=== PATIENT | male | born 1955 | race Two or more races ===

== ENCOUNTER 2017-05-31 17:28 | Emergency (ER) | payer BC ==
[~2017-05-31] VITALS: Ht 175.3 cm; Wt 75.0 kg
[2017-05-31] MEDS ORDERED: ASPIRIN 81 MG CHEW TABLET PO ONE (17:45)
[2017-05-31] MEDS ORDERED: ASPI81CH PO (17:46)
[2017-05-31] MEDS ORDERED: CRES10TA32 PO (17:46)
[2017-05-31] MEDS ORDERED: [UNRECOGNIZED DRUG - OTHER] (17:46)
[2017-05-31 18:00] LABS: BASO # 0.1 K/mm3 (0.0-0.2); BASO % 1.1 % (0.0-1.0); EOS # 0.8 K/mm3 (0.0-0.50); EOS % 12.9 % (0.0-3.0); LARGE UNSTAINED CELL # 0.1 K/mm3 (0.0-0.4); LARGE UNSTAINED CELL % 1.7 % (0.0-4.0); LYMPH # 2.5 K/mm3 (1.5-4.5); MEAN CORPUSCULAR HEMOGLOBIN 31.5 pg (27.0-33.0); MEAN CORPUSCULAR HGB CONC 34.1 g/dl (32.0-36.5); MEAN CORPUSCULAR VOLUME 92.3 fl (80.0-96.0); MONO # 0.4 K/mm3 (0.0-0.8); MONO % 5.7 % (0.0-5.0); NEUTROPHILS # 2.8 K/mm3 (1.8-7.7); NEUTROPHILS % 42.5 % (36.0-66.0); PLATELET COUNT, AUTOMATED 192 k/mm3 (150-450); RED CELL DISTRIBUTION WIDTH 12.7 % (11.5-14.5); WHITE BLOOD COUNT 6.6 K/mm3 (4.0-10.0)
[2017-05-31] MEDS ORDERED: NITROGLYCERIN 0.4 MG SUBL TABLET SL PRN (18:00)
[2017-05-31 18:01] VITALS: BP 124/78
[2017-05-31 18:26] LABS: ALBUMIN 3.8 GM/DL (3.2-5.2); ALBUMIN/GLOBULIN RATIO 0.97 (1.00-1.93); ALKALINE PHOSPHATASE 101 U/L (45-117); ALT/SGPT 28 U/L (12-78); ANION GAP 5 MEQ/L (8-16); AST/SGOT 26 U/L (15-37); BILIRUBIN,DIRECT 0.1 MG/DL (0.0-0.2); BILIRUBIN,TOTAL 0.4 MG/DL (0.2-1.0); BLOOD UREA NITROGEN 14 MG/DL (7-18); CALCIUM LEVEL 8.8 MG/DL (8.8-10.2); CARBON DIOXIDE LEVEL 29 MEQ/L (21-32); CHLORIDE LEVEL 104 MEQ/L (98-107); CREATININE FOR GFR 0.84 MG/DL (0.70-1.30); GLOMERULAR FILTRATION RATE > 60.0 (>49); GLUCOSE, FASTING 100 MG/DL (80-110); POTASSIUM SERUM 4.5 MEQ/L (3.5-5.1); SODIUM LEVEL 138 MEQ/L (136-145); TOTAL PROTEIN 7.7 GM/DL (6.4-8.2)
--- NOTE | 2017-05-31 18:44 | REP ---
Portable chest: There are no comparisons. The lung walsh are clear. The cardiac size is normal. The bobbi, mediastinum, and bony thorax are unremarkable. Impression: Negative portable chest. Signed by Sujti Chapman MD 05/31/2017 06:35 P
--- NOTE | 2017-05-31 19:08 | ECGEPIP ---
Stationary ECG Study [facility] - ED Test Date: 2017-05-31 Pat Name: INES GAMBINO Department: Room: - Gender: M Reviewer Sales: : 1955 Requested By: Shanna Farrell Order Number: [id number] Reading MD: Shanna Farrell Measurements Intervals [place] Rate: 68 P: 51 CO: 151 QRS: -1 QRSD: 100 T: 54 QT: 370 QTc: 395 Interpretive Statements SINUS RHYTHM DELAYED R PROGRESSION NO PRIOR FOR COMPARISON Electronically Signed On 05-31-2017 19:08:02 EDT by Shanna Farrell
[2017-06-01 00:41] VITALS: BP 122/75
--- NOTE | 2017-06-01 13:42 | ECGEPIP ---
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
[2017-06-02] MEDS ORDERED: TOPR25TA PO (22:18)
[2017-06-02] MEDS ORDERED: ASPI1TAB15 PO (23:49)
[2017-06-02] MEDS ORDERED: PATIENT COMMENT (23:52)
== END 2017-06-01 00:43 | disposition home or self-care (01) ==
LOC: M ED 17:28
DX: R07.9 Chest pain, unspecified (principal); I25.2 Old myocardial infarction; E78.5 Hyperlipidemia, unspecified; Z95.5 Presence of coronary angioplasty implant and graft; Z79.82 Long term (current) use of aspirin; Z79.899 Other long term (current) drug therapy; Z91.89 Other specified personal risk factors, not elsewhere classified

== ENCOUNTER 2017-06-02 19:35 | Inpatient (IN) | payer BC ==
[~2017-06-02] VITALS: Ht 170.2 cm; Wt 73.1 kg
[~2017-06-02 19:35] MED LIST: ASPI81CH PO; CRES10TA32 PO; [UNRECOGNIZED DRUG - OTHER]
[2017-06-02] MEDS: SENOKOT S TAB PO SCH (21:00)
[2017-06-02] MEDS ORDERED: ASPIRIN 81 MG CHEW TABLET PO ONE (22:15)
[2017-06-02] MEDS ORDERED: NITROGLYCERIN 0.4 MG SUBL TABLET SL PRN (22:15)
[2017-06-02] MEDS ORDERED: TOPR25TA PO (22:18)
[2017-06-02 22:20] LABS: BASO % 0.9 % (0.0-1.0); EOS # 0.7 K/mm3 (0.0-0.50); LARGE UNSTAINED CELL # 0.1 K/mm3 (0.0-0.4); LARGE UNSTAINED CELL % 2.4 % (0.0-4.0); LYMPH # 1.6 K/mm3 (1.5-4.5); LYMPH % 29.4 % (24.0-44.0); MEAN CORPUSCULAR HEMOGLOBIN 32.4 pg (27.0-33.0); MEAN CORPUSCULAR VOLUME 92.5 fl (80.0-96.0); MONO # 0.3 K/mm3 (0.0-0.8); MONO % 6.2 % (0.0-5.0); NEUTROPHILS # 2.7 K/mm3 (1.8-7.7); NEUTROPHILS % 48.2 % (36.0-66.0); PLATELET COUNT, AUTOMATED 218 k/mm3 (150-450); RED CELL DISTRIBUTION WIDTH 12.4 % (11.5-14.5); WHITE BLOOD COUNT 5.5 K/mm3 (4.0-10.0)
[2017-06-02 22:30] LABS: ANION GAP 6 MEQ/L (8-16); BLOOD UREA NITROGEN 18 MG/DL (7-18); CALCIUM LEVEL 9.3 MG/DL (8.8-10.2); CARBON DIOXIDE LEVEL 28 MEQ/L (21-32); CHLORIDE LEVEL 103 MEQ/L (98-107); CREATININE FOR GFR 0.98 MG/DL (0.70-1.30); GLOMERULAR FILTRATION RATE > 60.0 (>49); GLUCOSE, FASTING 113 MG/DL (80-110); POTASSIUM SERUM 4.4 MEQ/L (3.5-5.1); SODIUM LEVEL 137 MEQ/L (136-145)
[2017-06-02] MEDS ORDERED: ASPI1TAB15 PO (23:49)
[2017-06-02] MEDS ORDERED: PATIENT COMMENT (23:52)
[2017-06-03] VITALS (7 sets, daily range): BP systolic 103–156; BP diastolic 62–86; PULSE 60
[2017-06-03] MEDS ORDERED: ONDANSETRON 4MG/2ML VIAL (J2405) IV PRN (00:30)
[2017-06-03] MEDS ORDERED: ACETAMINOPHEN TAB 650MG DOSE (2X325MG) PO PRN (00:30)
[2017-06-03] MEDS ORDERED: ENOXAPARIN 100MG/1ML SYRINGE (J1650) SC STA (00:31)
[2017-06-03] MEDS ORDERED: AMLO5TAB2 PO (00:46)
[2017-06-03] MEDS ORDERED: ENAL10TA2 PO (00:46)
[2017-06-03] MEDS ORDERED: SLF 3 ML SYR IV PRN (03:00)
[2017-06-03] MEDS: METOPROLOL SUCC *XL* 25MG TAB (TopROL *XL*) PO SCH ×2 (03:01→20:27)
[2017-06-03] MEDS: ROSUVASTATIN 10 MG TAB (CRESTOR) PO SCH ×2 (03:01→20:26)
[2017-06-03 03:15] LABS: MEAN CORPUSCULAR HEMOGLOBIN 32.1 pg (27.0-33.0); MEAN CORPUSCULAR HGB CONC 34.9 g/dl (32.0-36.5); RED CELL DISTRIBUTION WIDTH 12.6 % (11.5-14.5); WHITE BLOOD COUNT 6.5 K/mm3 (4.0-10.0)
[2017-06-03 03:20] LABS: INR 0.96
[2017-06-03 03:31] LABS: ANION GAP 2 MEQ/L (8-16); BLOOD UREA NITROGEN 17 MG/DL (7-18); CALCIUM LEVEL 9.3 MG/DL (8.8-10.2); CARBON DIOXIDE LEVEL 33 MEQ/L (21-32); CHLORIDE LEVEL 105 MEQ/L (98-107); CREATININE FOR GFR 0.92 MG/DL (0.70-1.30); GLOMERULAR FILTRATION RATE > 60.0 (>49); GLUCOSE, FASTING 95 MG/DL (80-110); MAGNESIUM LEVEL 2.4 MG/DL (1.8-2.4); POTASSIUM SERUM 4.6 MEQ/L (3.5-5.1); SODIUM LEVEL 140 MEQ/L (136-145)
[2017-06-03] MEDS: SLF 3 ML SYR IV SCH ×3 (05:25→20:28)
--- NOTE | 2017-06-03 05:53 | ECGEPIP ---
Stationary ECG Study [facility] - ED Test Date: 2017-06-02 Pat Name: INES GAMBINO Department: Room: - Gender: M Clinical Documentation Consultant: teja : 1955 Requested By: SALLY Maier Order Number: [id number] Reading MD: Horacio Guerrero Measurements Intervals [place] Rate: 63 P: 54 WI: 146 QRS: 8 QRSD: 104 T: 61 QT: 374 QTc: 385 Interpretive Statements SINUS RHYTHM Electronically Signed On 06-03-2017 5:53:07 EDT by Horacio Guerrero
--- NOTE | 2017-06-03 05:53 | HPE ---
DATE OF ADMISSION: 06/03/2017 PRIMARY CARE PROVIDER: None. FRONT DESK AUXILIARY: In the process of getting arranged to see Dr. Pitts. CHIEF COMPLAINT: Chest pain. HISTORY OF PRESENT ILLNESS: This is a 62-year-old male patient with underlying medical history of coronary arterial disease, hypertension, dyslipidemia with stent in 2010, presented to the hospital with one week of intermittent chest pain. As per the patient, lasting about 30 to 40 minutes, left-sided pressure like radiating to the left shoulder about 5/10, resolved with nitro, worsened with ambulation also with decrease in exercise tolerance. As per the patient, exhausted more easily when ambulating. Also reported some dyspnea. Presented to the emergency room previously and cardiac enzymes was negative times two. Subsequently went home. Reported symptoms worsening; subsequently returned to the hospital. Has an appointment with Dr. Pitts on the 14 of June. Denies any diaphoresis, fevers, chills. Last episode was earlier today around 7 o'clock at night and the one prior to that was around 4 o'clock p.m. The patient denies any cough, sick contact. Arrived in the [place] about a month ago from [place]. ALLERGIES: To IODINE with anaphylaxis. PAST MEDICAL HISTORY: 1. Hypertension. 2. Dyslipidemia. 3. Coronary arterial disease. PAST SURGICAL HISTORY: 1. Cholecystectomy. 2. Back surgery. 3. Cardiac stent 2010 in [place]. SOCIAL HISTORY: The patient quit smoking 20 years ago and has not drink for the past 10 years. Lives with daughter at [place]. REVIEW OF SYSTEMS: Other than chest pain and dyspnea on exertion, other review of systems was negative. The patient denies any orthopnea, paroxysmal nocturnal dyspnea. HOME MEDICATION: - Norvasc 5 mg by mouth daily - aspirin 81 mg by mouth at bedtime (q.h.s.) - enalapril 10 mg by mouth daily - metoprolol succinate 25 mg by mouth at bedtime (q.h.s.) - Crestor 10 mg by mouth at bedtime (q.h.s.) PHYSICAL EXAMINATION: VITAL SIGNS: Temperature 97.6, pulse 60, respirations 20, blood pressure 124/76, pulse oximetry 98% on room air. GENERAL: The patient was alert and oriented times three, Ukrainian speaking, in no acute distress. HEENT: Normocephalic, atraumatic. PULMONARY: Bilateral clear to auscultation. CARDIAC: Regular rate and rhythm. Systolic murmur detected, 2/6. ABDOMEN: Soft, nontender. Positive bowel sounds. EXTREMITIES: No clubbing, cyanosis or edema. NEUROLOGIC: No focal deficits. Electrocardiogram (EKG): Sinus rhythm at 63. No ST-segment changes. LABORATORY: White blood count (WBC) 5.5. Hemoglobin and hematocrit 14.1/40.3, platelets 218. Chemistry: Sodium 137, potassium 4.4, chloride 103, bicarbonate 28, BUN 18, creatine 0.98, cardiac enzymes negative times one. D-dimer 867.8, ASSESSMENT AND PLAN: This is a 62-year-old male patient with underlying medical history of coronary arterial disease, dyslipidemia, hypertension admitted with chest pain. 1. Chest pain positive angina. Followup cardiac enzymes, telemetry, serial electrocardiogram (EKG). Case discussed with Dr. Pitts. Given cardiac enzymes negative with negative electrocardiogram (EKG), Dr. Pitts will like the patient to followup as outpatient with a stress test. Given D-dimer is elevated, recommend further study in terms of V/Q scan. Plavix has been added to aspirin, as well as Endur. Continue BRIGETTE and beta blockers. Crestor dosage has been increased. Followup cardiac enzymes, V/Q scan. One dose of therapeutic treatment with Lovenox has been given prior to ruling the patient out with pulmonary emboli (PE). 2. Dyspnea on exertion. Followup echocardiograms. The patient does not seem to be fluid overloaded. Will check ejection fraction and wall motional abnormality. Need outpatient followup with cardiology. 3. Hypertension. Continue Endure, metoprolol, Vasotec. 4. Dyslipidemia. Continue statin. 5. Deep vein thrombosis (DVT) prophylaxis. Lovenox subcutaneous. The patient received a dose of therapeutic Lovenox. DISPOSITION: Pending echocardiograms, V/Q scan. Needs outpatient followup with cardiology. Followup cardiac enzymes.
--- NOTE | 2017-06-03 07:26 | REP ---
PA and lateral chest: Comparison is a portable chest dated 05/31/2017. The lung walsh are clear. The cardiac size is normal The bobbi, mediastinum, and bony thorax are unremarkable. Impression: Negative PA and lateral chest. There is no interval change. Signed by Sujit Chapman MD 06/03/2017 07:17 A
[2017-06-03] MEDS: PANTOPRAZOLE 40MG TAB (PROTONIX) PO SCH (09:00)
[2017-06-03] MEDS: ISOSORBIDE MON. (IMDUR) 30 MG XR TAB PO SCH (09:59)
[2017-06-03] MEDS: CLOPIDOGREL 75 MG TAB PO SCH (10:00)
[2017-06-03] MEDS: SENOKOT S TAB PO SCH ×2 (10:01→20:27)
[2017-06-03] MEDS: ENALAPRIL MALEATE 10 MG TAB PO SCH (10:02)
--- NOTE | 2017-06-03 11:51 | REP ---
VENTILATION-PERFUSION LUNG SCAN: HISTORY: Chest pain. Comparison chest x-ray is from the previous day. TECHNIQUE: 1.0 mCi technetium 99m DTPA aerosol is utilized for the ventilation study and is followed by a 5.5 mCi dose of technetium-99m MAA for the perfusion exam. A series of eight planar images are acquired for each portion of the exam. SCINTIGRAPHIC FINDINGS: No perfusion defect is seen. There is some mild central bronchial deposition of inspired tracer on the ventilation study consistent with some degree of COPD. IMPRESSION: Negative perfusion scan. No evidence of pulmonary embolus. Signed by Blake Burk MD 06/03/2017 04:40 P
--- NOTE | 2017-06-03 16:06 | IPN ---
DATE: 06/03/2017 SUBJECTIVE: The patient is seen and examined in the room today. At the time of the encounter, the patient does not have any chest pain. The patient stated that for the past week the patient has been having intermittent chest pain, pressure type on the left chest with radiation to the left arm. The patient could not recall any specific triggers and the chest pain can happen intermittently. Prior to this current admission, the patient's chest pain is lasting approximately 30 minutes. The patient also noticed some certain body postures will escalate or decrease the chest pain. The patient does have a history of coronary artery disease. The patient had two cardiac stents placed in 2010 in [place]. The patient was told that multiple of his major cardiac arteries had a different degree of blockage. OBJECTIVE: VITAL SIGNS: Temperature is 97.4, pulse is 60, respirations 18, blood pressure is 128/78, pulse oximetry is 94% on room air. GENERAL: No signs of acute distress. Alert and oriented times three. HEENT: Normocephalic, atraumatic. Extraocular motors are grossly intact. CARDIOVASCULAR: Positive S1, S2. Regular rate. Positive systolic murmur. LUNGS: Clear to auscultation bilaterally. ABDOMEN: Soft, nontender, nondistended. Bowel sounds present. No rebound. No guarding. EXTREMITIES: No edema. No sign of cyanosis. LABORATORY DATA: WBC is 6.5, hemoglobin 14.3, hematocrit 40.5, platelet count is 190. Sodium is 140, potassium 4.6, chloride 105, carbon dioxide 33, BUN 17, creatinine 0.93, GFR greater than 60, fasting glucose is 95, calcium is 9.3, magnesium 2.4, total CK is 98, troponin I is less than 0.02 times three sets. ASSESSMENT AND PLAN: 1. Possible angina. Three sets of cardiac enzymes have been negative. The patient is being monitored on telemetry. The case was discussed with Dr. Pitts previously. The patient will have testing done in the outpatient setting. The patient still complains of chest pain. The patient also has elevated D-dimer. However, the patient does have allergic reaction to iodine. The patient is not eligible for CT angiogram, but the patient will have a scheduled V/Q scan in the afternoon. 2. Dyspnea on exertion. We will followup with a V/Q scan. We will follow with an echocardiogram. 3. Hypertension. Imdur, metoprolol, and Vasotec. 4. Dyslipidemia. On statin. 5. History of CAD, status post two cardiac stents. The patient is on aspirin and Plavix. The patient is also on Vasotec, Imdur, statin and metoprolol. The patient has nitroglycerin as needed. 6. Deep vein thrombosis (DVT) prophylaxis. The patient is on Lovenox 40 mg subcutaneously daily. DISPOSITION: The patient only speaks [place]. The patient came to the state 1 to 2 months ago. We will try to establish the patient with a new provider in [place]. The patient will follow with Dr. Pitts in the outpatient setting for his significant cardiac history. We anticipate the patient may be discharged tomorrow. SABRA
[2017-06-03] MEDS ORDERED: ASPIRIN 81 MG ENTERIC TAB PO SCH (21:00)
[2017-06-03] MEDS ORDERED: diphenhydrAMINE 25 MG CAP PO ONE (23:15)
[2017-06-04] VITALS: BP 100/66
[2017-06-04 04:00] VITALS: BP 100/56
[2017-06-04] MEDS: SLF 3 ML SYR IV SCH (04:55)
[2017-06-04 05:35] LABS: MEAN CORPUSCULAR HGB CONC 34.5 g/dl (32.0-36.5); MEAN CORPUSCULAR VOLUME 92.5 fl (80.0-96.0); RED CELL DISTRIBUTION WIDTH 12.5 % (11.5-14.5); WHITE BLOOD COUNT 5.7 K/mm3 (4.0-10.0)
[2017-06-04 05:36] LABS: INR 0.96
[2017-06-04 05:49] LABS: ANION GAP 5 MEQ/L (8-16); BLOOD UREA NITROGEN 15 MG/DL (7-18); CALCIUM LEVEL 8.9 MG/DL (8.8-10.2); CARBON DIOXIDE LEVEL 30 MEQ/L (21-32); CHLORIDE LEVEL 100 MEQ/L (98-107); CREATININE FOR GFR 0.99 MG/DL (0.70-1.30); GLOMERULAR FILTRATION RATE > 60.0 (>49); GLUCOSE, FASTING 89 MG/DL (80-110); MAGNESIUM LEVEL 2.1 MG/DL (1.8-2.4); POTASSIUM SERUM 3.9 MEQ/L (3.5-5.1); SODIUM LEVEL 135 MEQ/L (136-145)
[2017-06-04 08:09] VITALS: BP 120/76
[2017-06-04 08:43] VITALS: BP 120/76
[2017-06-04] MEDS: ISOSORBIDE MON. (IMDUR) 30 MG XR TAB PO SCH (08:43)
[2017-06-04] MEDS: CLOPIDOGREL 75 MG TAB PO SCH (08:43)
[2017-06-04] MEDS: SENOKOT S TAB PO SCH ×2 (08:43→08:54)
[2017-06-04] MEDS: PANTOPRAZOLE 40MG TAB (PROTONIX) PO SCH (08:43)
[2017-06-04] MEDS: ENALAPRIL MALEATE 10 MG TAB PO SCH (08:44)
[2017-06-04] MEDS ORDERED: ENOXAPARIN 40 MG/0.4 ML SYRINGE (J1650) SC SCH (09:00)
[2017-06-04] MEDS ORDERED: TOPR25TA PO (09:06)
[2017-06-04] MEDS ORDERED: CLOP75TA2 PO (09:06)
[2017-06-04] MEDS ORDERED: ASPI1TAB15 PO (09:06)
[2017-06-04] MEDS ORDERED: ENAL10TA2 PO (09:06)
[2017-06-04] MEDS ORDERED: CRES10TA32 PO (09:06)
[2017-06-04] MEDS ORDERED: ISOS30TA4 PO (09:06)
[2017-06-04] MEDS ORDERED: AMLO5TAB2 PO (09:06)
[2017-06-04] MEDS ORDERED: CRES20TA PO (09:37)
--- NOTE | 2017-06-04 23:02 | DSES ---
DATE OF ADMISSION: 06/03/2017 DATE OF DISCHARGE: 06/04/2017 PRIMARY CARE PROVIDER: None. CONSULTANTS: None. PROCEDURES: None. COMPLICATIONS: None. DISCHARGE DIAGNOSES: 1. Angina. 2. Dyspnea on exertion. 3. Hypertension. 4. Dyslipidemia. 5. History of coronary artery disease status post cardiac stent in 2010. 6. Hypertension. HOSPITALIZATION COURSE: Patient is a 62-year-old male who presented to [facility] on 06/03/2017 for intermittent chest pain. The patient was admitted to the progressive care unit (PCU) for cardiac telemetry. Case was discussed with Dr. Pitts. Patient had serial cardiac enzymes ordered. Medication is being adjusted based on the patient's clinical presentation. Due to iodine allergies, patient had a VQ scan ordered. Later, V/Q scan showed negative results, and patient has completely normal cardiac enzymes and no events observed on telemetry. Patient is determined medically stable for discharge with recommendation to establish with primary care provider in 1 week. Patient should followup with Dr. Pitts in 1-2 weeks, and patient is recommended to have outpatient stress study. Patient is recommended to followup with echocardiogram result with the primary care provider. OBJECTIVE: VITAL SIGNS: Temperature is 98.2, pulse is 49, respirations 18, blood pressure 120/76, pulse oximetry is 97% on room air. LABORATORY DATA: WBC 5.7, hemoglobin 12.8, hematocrit 37, platelet count 202. Sodium 135, potassium 3.9, chloride 100, carbon dioxide 30, BUN 15, creatinine 0.9, GFR greater than 60, fasting glucose is 89, calcium is 8.9, magnesium 2.1. Troponin I is less than 0.02 times three sets. PT is 12.9, INR 0.96. IMAGING STUDIES: Chest x-ray on 06/02/2017 showed negative PA and lateral chest. V/Q scan of the lung on 06/03/2017 showed negative perfusion scan. No evidence of pulmonary embolism. DISCHARGE MEDICATIONS: - Plavix 75 mg by mouth daily - isosorbide mononitrate 30 mg by mouth daily - Crestor 20 mg by mouth daily - amlodipine 5 mg by mouth daily - aspirin 81 mg by mouth at bedtime - enalapril 10 mg by mouth daily - metoprolol succinate 25 mg by mouth at bedtime DISCHARGE INSTRUCTIONS: Discontinue line, discharge home. Activity as tolerated. Low-salt diet as tolerated. Patient should establish with a primary care provider in 1-2 weeks. Patient should followup with Dr. Pitts in 1-2 weeks. Patient is recommended to have an outpatient stress study performed. DISCHARGE TIME: Greater than 35 minutes. DISCHARGE CONDITION: Stable.
--- NOTE | 2017-06-05 11:33 | ECHO ---
DATE OF PROCEDURE: 06/03/2017 DATE OF : 1955 AGE: 62 REFERRING PROVIDER: Dr. Sylvester. PATIENT LOCATION: Room 3219. REASON FOR ECHOCARDIOGRAM: Chest pain. 2D MEASUREMENTS: IVS: 1.2 cm LV: 3.9 cm LVPW: 1.2 cm LA: 3.3 cm Aorta: 3.2 cm IVC: 1.5 cm DOPPLER MEASUREMENTS: Peak velocity across the aortic valve: 1.2 m/s Peak velocity across the LVOT: 1.0 m/s Mitral E: 0.48 Mitral A: 0.58 Ratio 0.8 2D COMMENTS: 1. Normal left ventricular size, wall thickness and normal global left ventricular systolic function. The estimated left ventricular systolic ejection fraction is 60% to 65%. 2. Normal left atrium. Normal right atrium and right ventricle. 3. The atrial septum appeared to be normal without evidence of defect or shunt. 4. Normal aortic root. 5. No pericardial effusion seen. 6. Minimally calcified aortic valve with normal leaflet excursion. Normal mitral valve, tricuspid valve, and pulmonic valve. The proximal pulmonary artery branches were not well visualized. 7. The inferior vena cava was normal in size, central venous pressure is most likely normal. DOPPLER: It detects trace aortic regurgitation, trace mitral regurgitation. Abnormal relaxation pattern was noted across the mitral valve leaflets as well as the mitral valve annulus consistent with grade 1 left ventricular diastolic dysfunction. IMPRESSION: 1. Normal global left ventricular systolic function. There are features of left ventricular diastolic dysfunction manifested by abnormal relaxation. 2. Aortic valve sclerosis with trace aortic regurgitation but no aortic stenosis. 3. Trace mitral regurgitation. MTDD
== END 2017-06-04 11:10 | disposition home or self-care (01) | DRG 198 ==
LOC: M ED 19:35 → M ED INP 06-03 00:16 → M PCU 06-03 02:12
PROVIDERS: ADMIT Hospitalist; ATTEND Internal Medicine
DX: I20.9 Angina pectoris, unspecified (principal); I10 Essential (primary) hypertension; E78.5 Hyperlipidemia, unspecified; Z95.2 Presence of prosthetic heart valve; Z79.899 Other long term (current) drug therapy; Z79.82 Long term (current) use of aspirin; Z87.891 Personal history of nicotine dependence

== ENCOUNTER → 2017-07-23 | Outpatient (REF) | payer BC ==
[~2017-07-23] MED LIST changes: +AMLO5TAB2 PO; +ASPI1TAB15 PO; +CLOP75TA2 PO; +CRES20TA PO; +ENAL10TA2 PO; +ISOS30TA4 PO; +PATIENT COMMENT; +TOPR25TA PO
[2017-07-23 12:17] LABS: ANION GAP 8 MEQ/L (8-16); BLOOD UREA NITROGEN 17 MG/DL (7-18); CALCIUM LEVEL 9.3 MG/DL (8.8-10.2); CARBON DIOXIDE LEVEL 30 MEQ/L (21-32); CHLORIDE LEVEL 104 MEQ/L (98-107); CHOLESTEROL LEVEL 135 MG/DL (<200); CREATININE FOR GFR 0.85 MG/DL (0.70-1.30); GLOMERULAR FILTRATION RATE > 60.0 (>49); GLUCOSE, FASTING 93 MG/DL (80-110); POTASSIUM SERUM 4.8 MEQ/L (3.5-5.1); SODIUM LEVEL 142 MEQ/L (136-145); TRIGLYCERIDES LEVEL 128 MG/DL (<150)
== END ==
LOC: M SFHCPLAZ 08:15
DX: Z71.89 Other specified counseling (principal); Z79.899 Other long term (current) drug therapy